=== PATIENT | male | born 1945 | race Caucasian/White ===

== ENCOUNTER 2023-02-09 13:56 | Outpatient (OUT) | payer MEDICARE, SELFPAY ==
[2023-02-09 14:19] LABS: Basophils Percent Auto 0.4 % (0.2-2.0); Eosinophils Absolute Auto 0.2 10^3/uL (0.0-0.7); Eosinophils Percent Auto 1.9 % (0.9-7.0); Hematocrit 39.6 % (42.0-54.0); Hemoglobin 13.5 g/dL (14.0-18.0); Immature Granulocytes Abs Auto 0.03 10^3/uL (0.00-0.03); Immature Granulocytes Pct Auto 0.3 % (0.0-0.5); Lymphocytes Absolute Auto 1.8 10^3/uL (1.2-3.8); Lymphocytes Percent Auto 20.1 % (20.5-60.0); Mean Corpuscular HGB Conc 34.1 g/dL (29.9-35.2); Mean Platelet Volume 8.6 fL (9.5-13.5); Monocytes Absolute Auto 0.7 10^3/uL (0.3-0.8); Monocytes Percent Auto 7.7 % (1.7-12.0); Neutrophils Absolute Auto 6.4 10^3/uL (1.4-6.5); Neutrophils Percent Auto 69.6 % (43.0-75.0); Platelet Count 296 10^3/uL (150-450); Red Blood Count 4.66 10^6/uL (4.70-6.10); Red Cell Distribution Width 13.6 % (11.0-15.0); White Blood Count 9.1 10^3/uL (4.0-11.0)
[2023-02-09 14:48] LABS: Alanine Aminotransferase 20 U/L (16-63); Albumin Level 3.4 g/dL (3.4-5.0); Alkaline Phosphatase 97 U/L (46-116); Anion Gap 11.1; Aspartate Amino Transferase 14 U/L (15-37); BUN Creatinine Ratio 17.4; Bilirubin Total 0.3 mg/dL (0.2-1.0); Calcium 8.7 mg/dL (8.5-10.1); Carbon Dioxide 28.8 mmol/L (21.0-32.0); Chloride 98 mmol/L (98-107); Estimated GFR (African America >60 (>=60); Estimated GFR (Non-African Ame >60 (>=60); Globulin 3.4 g/dL; Glucose 121 mg/dL (74-106); Potassium 3.9 mmol/L (3.5-5.1); Sodium 134 mmol/L (136-145); Total Protein 6.8 g/dL (6.4-8.2)
[2023-02-09 14:57] LABS: Thyroid Stimulating Hormone 0.721 uIU/mL (0.358-3.740)
== END 2023-02-09 13:57 ==
LOC: LAB 13:58
PROVIDERS: PCP Internal Medicine; Visit Provider Internal Medicine
DX: I10 Essential (primary) hypertension (principal); K59.09 Other constipation
CPT/HCPCS: 36415; 80053; 84443; 85025

== ENCOUNTER 2023-08-11 08:37 | Outpatient (OUT) | payer MEDICARE, SELFPAY ==
--- NOTE | 2023-08-11 09:00 | XR_ITS ---
The [address] [address] Patient Name: JENNIFER MCKINNEY MRN: [id number] date: 1945 Sex: M Assigned Patient Location: LAB Current Patient Location: LAB Accession/Order Number: [id number] Exam Date: 08/11/2023 09:05 Report Date: 08/11/2023 13:31 At the request of: SHAIKH SARAN Procedure: XR shoulder RT min 2V PROCEDURE: XR shoulder RT min 2V DATE: 08/11/2023 8:05 AM [employer] COMPARISONS: None CLINICAL INDICATION: acute pain of rt shoulder M25.511 FINDINGS: There is no evidence of fractures or other acute osseous abnormalities. There is bone demineralization consistent with the patient's age. There is evidence of mild glenohumeral degenerative change. There is evidence of mild to moderate acromioclavicular degenerative change. The visualized soft tissue show no abnormalities in these projections. XR/XR shoulder RT min 2V IMPRESSION: Right shoulder radiographs show no evidence of acute abnormalities. Findings as discussed above. Electronically authenticated by: ANTELMO ESTEVES Date: 08/11/2023 13:31
[2023-08-11 09:25] LABS: Basophils Absolute Auto 0.1 10^3/uL (0.0-0.1); Basophils Percent Auto 0.5 % (0.2-2.0); Eosinophils Absolute Auto 0.2 10^3/uL (0.0-0.7); Eosinophils Percent Auto 2.1 % (0.9-7.0); Hematocrit 42.5 % (42.0-54.0); Hemoglobin 13.8 g/dL (14.0-18.0); Immature Granulocytes Abs Auto 0.05 10^3/uL (0.00-0.03); Immature Granulocytes Pct Auto 0.5 % (0.0-0.5); Lymphocytes Absolute Auto 1.9 10^3/uL (1.2-3.8); Lymphocytes Percent Auto 19.2 % (20.5-60.0); Mean Corpuscular HGB Conc 32.5 g/dL (29.9-35.2); Mean Corpuscular Hemoglobin 28.4 pg (25.9-34.0); Mean Corpuscular Volume 87.4 fL (80.0-94.0); Mean Platelet Volume 8.7 fL (9.5-13.5); Monocytes Absolute Auto 0.8 10^3/uL (0.3-0.8); Monocytes Percent Auto 8.5 % (1.7-12.0); Neutrophils Absolute Auto 6.7 10^3/uL (1.4-6.5); Neutrophils Percent Auto 69.2 % (43.0-75.0); Platelet Count 318 10^3/uL (150-450); Red Blood Count 4.86 10^6/uL (4.70-6.10); Red Cell Distribution Width 13.9 % (11.0-15.0); White Blood Count 9.7 10^3/uL (4.0-11.0)
[2023-08-11 10:31] LABS: Alanine Aminotransferase 24 U/L (16-63); Albumin Level 3.5 g/dL (3.4-5.0); Alkaline Phosphatase 92 U/L (46-116); Anion Gap 8.5; Aspartate Amino Transferase 14 U/L (15-37); BUN Creatinine Ratio 16.7; Bilirubin Total 0.3 mg/dL (0.2-1.0); Calcium 9.5 mg/dL (8.5-10.1); Chloride 94 mmol/L (98-107); Estimated GFR (African America >60 (>=60); Estimated GFR (Non-African Ame >60 (>=60); Globulin 3.6 g/dL; Glucose 90 mg/dL (74-106); Potassium 3.5 mmol/L (3.5-5.1); Sodium 132 mmol/L (136-145); Total Protein 7.1 g/dL (6.4-8.2)
[2023-08-12 04:07] LABS: PSA, Free 0.06 ng/mL; Prostate Specific Ag 0.3 ng/mL (0.0-4.0)
== END 2023-08-11 08:38 | disposition home or self-care (01) ==
LOC: LAB 08:39
PROVIDERS: PCP Internal Medicine; Visit Provider Internal Medicine
DX: I11.0 Hypertensive heart disease with heart failure (principal); I50.30 Unspecified diastolic (congestive) heart failure; I48.0 Paroxysmal atrial fibrillation; N40.1 Benign prostatic hyperplasia with lower urinary tract symptoms; N13.8 Other obstructive and reflux uropathy; M25.511 Pain in right shoulder
CPT/HCPCS: 36415; 73030; 80053; 84153; 84154; 85025

== ENCOUNTER 2024-02-22 08:25 | Outpatient (OUT) | payer MEDICARE, SELFPAY ==
--- OUTSIDE RECORDS SUMMARY | 2024-02-22 08:29 | XMS_ITS ---
Patient Summarization (C-CDA 2.1 CCD) Created on: February 22, 2024 HANKJENNIFER : 1945 Sex: Male Author Organization Sample organization Care Team Providers Care Driller'S Offsider Name Role Phone MERY, MADHU H. Unavailable Unavailable COLEEN WORRELL Unavailable Unavailabl e MERY, MADHU H. Unavailable Unavailable MERY, MADHU H. Unavailable Unavailable COLEEN WORRELL Unavailable Unavaillena e SHAIKH Clint NOONAN Admitting Unavailable SHAIKH Clint NOONAN Attending Unavailable SHAIKH Clint NOONAN Primary Care Unavailable SHAIKH Clint NOONAN Consulting Unavailable Shaikh Noonan MD Primary Care Provider JOBST ANTI COAG, AKA JOBST MTM MED THERAPY MGMT Referring Unavailable [facility] Primary Care Unavailable JOBST ANTI COAG, AKA JOBST MTM MED THERAPY MGMT Referring Unavailable [facility] Primary Care Unavailable JOBST ANTI COAG, AKA JOBST MTM MED THERAPY MGMT Referring Unavailable [facility] Primary Care Unavailable JOBST ANTI COAG, AKA JOBST MTM MED THERAPY MGMT Referring Unavailable [facility] Primary Care Unavailable JOBST ANTI COAG, AKA JOBST MTM MED THERAPY MGMT Referring Unavailable SARAN PINEDO Primary Care Unavailable SHAIKH NOONAN Attending Unavailable SHAIKH NOONAN Attending Unavailable Encounters Encounter Date Encounter Type Care Provider Facility Start: 02-09-2024 End: 02-09-2024 ambulatory SHAIKH SARAN Not Available Start: 02-02-2024 End: 02-02-2024 ambulatory AKA JOBST MTM MED THERAPY MGMT JOBST ANTI COAG [facility] Start: 12-08-2023 End: 12-08-2023 ambulatory AKA JOBST MTM MED THERAPY MGMT JOBST ANTI COAG [facility] Start: 11-10-2023 End: 11-10-2023 Follow-up encounter Eric Regan MD Work Phone: [facility] Medication Therapy Management Comment on above: Paroxysmal A-fib (CM S-HCC) (Primary Dx); tank terminal gauger (current) use of anticoagulants Start: 11-10-2023 End: 11-10-2023 ambulatory AKA JOBST MTM MED THERAPY MGMT [facility] Start: 09-15-2023 End: 09-15-2023 Follow-up encounter Eric Regan MD Work Phone: [facility] Medication Therapy Management Comment on above: Paroxysmal A-fib (CM S-HCC) (Primary Dx); half-way (current) use of anticoagulants Start: 09-15-2023 End: 09-15-2023 ambulatory AKA JOBST MTM MED THERAPY MGMT [facility] Start: 09-15-2023 End: 09-23-2023 ambulatory AKA JOBST MTM MED THERAPY MGMT JOBST ANTI [facility] Start: 08-10-2023 End: 08-10-2023 ambulatory PINEDO NATALIEWAD Not Available Start: 02-02-2022 End: 02-03-2022 ambulatory PINEDO Clint FAWWAD Facility: Start: 08-15-2018 End: 08-16-2018 Evaluation and management of inpatient [facility] Start: 08-10-2018 End: 08-15-2018 Patient encounter procedure [facility] Start: 01-20-2017 End: 03-06-2020 Patient encounter status [facility] Medical Equipment Procedure Code Equipment Code Equipment Origin al Text Equipment Identifier Dates Lead Capsure Fix [id number] [id number] - [id number] - [id number] Start: 02-22-2017 Cardiac pacemaker, device (physical object) [id number][facility] - [id number] - [id number] FDA Start: 02-22-2017 Medications Current Medications Medication Drug Class(es) Dates Sig (Normalized) Sig (Original) finasteride 5 mg oral tablet (2 sources) 5-alpha Reductase Inhibitor take 1 tablet by mouth in the morning finasteride (PROSCAR) 5 mg tablet Take 1 tablet (5 mg total) by mouth in the morning. 0 Active hydroCHLOROthiazide 25 mg oral tablet (2 sources) Thiazide Diuretic Start: 01-24-20 20 take 1 tablet by mouth once daily hydroCHLOROthiazide (HYDRODIURIL) 25 mg tablet Take 1 tablet (25 mg total) by mouth daily. 0 01/24/2020 Active lisinopril 20 mg oral tablet (2 sources) Angiotensin Converting Enzyme Inhibitor take 1 tablet by mouth in the morning lisinopril (PRINIVIL,ZESTRIL) 20 mg tablet Take 1 tablet (20 mg total) by mouth in the morning. 0 Active metoprolol tartrate 25 mg oral tablet (2 sources) beta-Adrenergic Ronit Start: 03-03-20 23 take 1 tablet by mouth in the morning, then take 1 tablet by mouth at bedtime metoprolol tartrate (LOPRESSOR) 25 mg tablet Take 1 tablet (25 mg total) by mouth in the morning and 1 tablet (25 mg total) before bedtime. 180 tablet 3 03/03/2023 Active NON FORMULARY (2 sources) NON FORMULARY Me d Name: AREDS 2 EYE VITAMIN 2 DAILY 0 Active omeprazole 20 mg delayed release oral capsule (2 sources) Proton Pump Inhibitor take 1 capsule by mouth in the morning omeprazole (PriLOSEC) 20 mg capsule Take 1 capsule (20 mg total) by mouth in the morning. 0 Active QUEtiapine 25 mg oral tablet (2 sources) Atypical Antipsychotic Start: 02-27-20 21 take 1 tablet by mouth once daily QUEtiapine (SEROquel) 25 mg tablet Take 1 tablet (25 mg total) by mouth nightly. 0 02/26/2021 Active vit C/E/zinc ox/michelet/lut/zeax (ICAPS AREDS2 ORAL) (2 sources) take 2 tablets by mouth twice daily vit C/E/zinc ox/michelet/lut/zeax (ICAPS AREDS2 ORAL) Take 2 tablets by mouth 2 (two) times a day. 0 Active warfarin sodium 5 mg oral tablet (2 sources) Vitamin K Antagonist Start: 02-04-20 23 take 1 tablet by mouth in the evening warfarin (COUMADIN) 5 mg tablet Indications: Paroxysmal A-fib (CMS-HCC) , tank terminal gauger (current) use of anticoagulants Take 1 tablet (5 mg total) by mouth in the evening. [facility].. 90 tablet 3 02/03/2023 Active Payers Date Payer Category Payer Medicare AETNA MEDICARE A ETNA MEDICARE PLAN (HMO) [id number] 2022-Present [phone] [address] [place] [address] [id number] 2022 Medicare [id number] 1961 Medicare [id number] 1961 Unknown [id number] 1945 Unknown [id number] 1945 Unknown [id number] 1945 Unknown [id number] 1945 Unknown [id number] 1945 Unknown [id number] 1945 Unknown [id number] 1945 Unknown [id number] 1945 Unknown [id number] 1945 Unknown [id number] 1945 Unknown [id number] Plan of Treatment Date Care Activity Detail Author Start: 03-25-2024 Adult BMI Screening Adult BMI Screening [facility] Start: 03-03-2024 Tobacco Screening Tobacco Screening [facility] Start: 12-08-2023 End: 12-08-2023 Follow-up encounter 12/08/2023 3:15 PM EDT Follow Up Anticoagulation [facility] Medication Therapy Management [address] [facility] [place] [address] Eric Regan MD [facility] [place] [address] [facility] Medication Therapy Management Start: 11-10-2023 End: 11-10-2023 Follow-up encounter 11/10/2023 3:00 PM EDT Follow Up Anticoagulation [facility] Medication Therapy Management [address] [place] [place] [address] Eric Regan MD [facility] [place] [address] [facility] Medication Therapy Management Start: 04-23-2023 COVID-19 Vaccine ( season) COVID-19 Vaccine ( season) [facility] Start: 2008 Fall Risk Screening Fall Risk Screening [facility] Start: 1993 Administration of varicella zoster vaccine Zoster (Shingles) Vaccine (1 of 2) [facility] Start: 1962 DTaP,Tdap and Td Vaccines (1 - Tdap) DTaP,Tdap and Td Vaccines (1 - Tdap) [facility] Start: 1961 Adult BMI Follow Up Plan Adult BMI Follow Up Plan [facility] Start: 1955 Depression Screening Depression Screening [facility] Start: 1945 Medicare Annual Wellness Visit Medicare Annual Wellness Visit [facility] Problems Active Problems Problem Classification Problem Date Documented Date Episodic/Chronic Cardiac dysrhythmias (8 sources) Unspecified atrial fibrillation; Translations: [Paroxysmal atrial fibrillation] Onset: 04-28-2017 Resolved: 06-29-2018 09-15-2023 Chronic Conduction disorders (4 sources) Complete atrioventricular block; Translations: [Atrioventricular block, complete] Onset: 01-20-2017 03-06-2020 Chronic Congestive heart failure; nonhypertensive (2 sources) Heart failure; Translations: [Unspecified diastolic (congestive) heart failure] Onset: 08-09-2019 03-06-2020 Chronic Essential hypertension (4 sources) Essential (primary) hypertension; Translations: [ESSENTIAL PRIMARY HYPERTENSION] Onset: 02-02-2022 Chronic Hypertension with complications and secondary hypertension (2 sources) Hypertensive heart disease; Translations: [Hypertensive heart disease without heart failure] Onset: 02-15-2017 03-06-2020 Chronic Other aftercare (6 sources) Long-term current use of anticoagulant; Translations: [tank terminal gauger (current) use of anticoagulants] Onset: 06-27-2018 Resolved: 06-29-2018 09-15-2023 Episodic Other connective tissue disease (1 source) Other symptoms and signs involving the musculoskeletal system; Translations: [Other symptoms and signs involving the musculoskeletal system] Onset: 08-10-2018 Episodic Other nervous system disorders (2 sources) Disease of spinal cord, unspecified; Translations: [Disease of spinal cord, unspecified] Onset: 08-15-2018 Chronic Other nervous system disorders (1 source) Unspecified cord compression; Translations: [Unspecified cord compression] Onset: 08-10-2018 Chronic Other screening for suspected conditions (not mental disorders or infectious disease) (1 source) Encounter for screening for malignant neoplasm of prostate; Translations: [ENC SCREEN MALIG NEOPLASM PROSTATE] Onset: 02-05-2022 Episodic Spondylosis; intervertebral disc disorders; other back problems (1 source) Other spondylosis with myelopathy, cervical region; Translations: [Other spondylosis with myelopathy, cervical region] Onset: 08-10-2018 Chronic Spondylosis; intervertebral disc disorders; other back problems (2 sources) Radiculopathy, cervical region; Translations: [Spinal stenosis, cervical region] Onset: 08-10-2018 Episodic Past or Other Problems Problem Classification Problem Date Documented Da te Episodic/Chronic Other aftercare (1 source) tank terminal gauger (current) use of anticoagulants; Translations: [half-way (current) use of anticoagulants] Onset: 03-04-2022 Episodic Procedures Date Procedure Procedure Detail Performing Clinician Start: 11-10-2023 Prothrombin time Jobst Service Work Phone: Start: 09-15-2023 Prothrombin time Jobst Service Work Phone: Start: 02-02-2022 PSA screening SHAIKH JEANNETTE BRITO Comment on above: Performed By: #### P [facility] #### [facility] [address] [place] [address] Dr. Shirin Quintero Start: 08-16-2018 PULSE OXIMETRY, CONTINUOUS MADHU MERY Start: 08-16-2018 DISCHARGE PATIENT MADHU YO O Start: 08-16-2018 DIET GENERAL MADHU MERY Start: 08-16-2018 PATIENT STATUS (DIRECT) MADHU MERY Start: 08-16-2018 INITIATE OXYGEN THER APY PROTOCOL MADHU MERY Start: 08-16-2018 PULSE OXIMETRY, CONTINUOUS MADHU MERY Start: 08-16-2018 PULSE OXIMETRY, CONTINUOUS MADHU MERY Start: 08-16-2018 DAILY WEIGHTS MADHU MERY Start: 08-16-2018 INTAKE AND OUTPUT MADHU YO O Start: 08-16-2018 PULSE OXIMETRY, CONTINUOUS MADHU MERY Start: 08-15-2018 PULSE OXIMETRY, CONTINUOUS MADHU MERY Start: 08-15-2018 PULSE OXIMETRY, CONTINUOUS MADHU MERY Start: 08-15-2018 ACTIVITY TOLERATED B O MERY Start: 08-15-2018 ADVANCE DIET TOLE RATED (NURSING COMMUNICATION) MADHU MERY Start: 08-15-2018 AMBULATE PATIENT MADHU MERY Start: 08-15-2018 ELEVATE HOB MADHU MERY Start: 08-15-2018 FULL CODE MADHU MERY Start: 08-15-2018 INITIATE OXYGEN THER APY PROTOCOL MADHU MERY Start: 08-15-2018 INTAKE AND OUTPUT MADHU YO O Start: 08-15-2018 NEURO/VASCULAR CHECKS B O MERY Start: 08-15-2018 NOTIFY PHYSICIAN (SPECIFY) MADHU MERY Start: 08-15-2018 NURSING COMMUNICATION B O MERY Start: 08-15-2018 OT EVAL AND TREAT MADHU YO O Start: 08-15-2018 PLACE INTERMITTENT PNEUMATIC COMPRESSION DEVICE MADHU MERY Start: 08-15-2018 PT EVAL AND TREAT MADHU YO O Start: 08-15-2018 PULSE OXIMETRY, CONTINUOUS MADHU MERY Start: 08-15-2018 TELEMETRY MONITORING MADHU MERY Start: 08-15-2018 TOBACCO CESSATION EDUCATION MADHU MERY Start: 08-15-2018 VITAL SIGNS MADHU MERY Start: 08-15-2018 PATIENT STATUS (FROM ED OR OR/PROCEDURAL) MADHU MERY Start: 08-15-2018 TRANSFER PATIENT MADHU MERY Start: 08-10-2018 EKG 12-LEAD MADHU MERY Start: 08-10-2018 URINE RT REFLEX TO CULTURE MADHU MERY Start: 08-10-2018 Blood count complete automated MADHU MERY Start: 08-10-2018 Prothrombin time MADHU MERY Start: 08-10-2018 Thromboplastin time partial plasma/whole blood MADHU MERY Start: 08-10-2018 Basic metabolic pane l calcium total MADHU MERY Start: 08-10-2018 TYPE AND SCREEN MADHU MERY Results Test Name Value Interpretation Reference Range Facil ity POCT Protime / INRon 11-09-2 024 INR Coag (PPP) [Relative time] 3.5 {INR} Abnormal 0.8 - 1.2 [facility] Interpretation and review of laboratory results Abnormal [facility] POCT Protime / INRon 09-15-2 024 INR Coag (PPP) [Relative time] 3.4 {INR} Abnormal 0.8 - 1.2 [facility] Interpretation and review of laboratory results Abnormal [facility] CBC AUTO DIFFon 02-02-2022 BASO # 0.0 103/ul Normal 0.0-0.1 [facility] Comment on above: Performed By: #### C BC #### [facility] [address] [place] [address] Dr. Shirin Quintero Basophils/100 WBC (Bld) 0.5 % Normal 0.2-2.0 [facility] Comment on above: Performed By: #### C BC #### [facility] [address] [place] [address] Dr. Shirin Quintero EO # 0.3 103/ul Normal 0.0-0.7 [facility] Comment on above: Performed By: #### C BC #### [facility] [address] [place] [address] Dr. Shirin Quintero Eosinophils/100 WBC (Bld) 3.5 % Normal 0.9-7.0 [facility] Comment on above: Performed By: #### C BC #### [facility] [address] [place] [address] Dr. Shirin Quintero Erythrocyte distribution width (RBC) [Ratio] 13.9 % Normal 11.0-15.0 [facility] Comment on above: Performed By: #### C BC #### [facility] [address] [place] [address] Dr. Shirin Quintero Hematocrit (Bld) [Volume fraction] 40.3 % Critically low 42.0-54.0 [facility] Comment on above: Performed By: #### C BC #### [facility] [address] [place] [address] Dr. Shirin Quintero Hemoglobin (Bld) [Mass/Vol] 13.1 g/dL Critically low 14.0-18.0 [facility] Comment on above: Performed By: #### C BC #### [facility] [address] [place] [address] Dr. Shirin Quintero IG # 0.02 10e3/ul Normal 0.00-0.03 [facility] Comment on above: Performed By: #### C BC #### [facility] [address] [place] [address] Dr. Shirin Quintero IG % 0.3 % Normal 0.0-0.5 [facility] Comment on above: Performed By: #### C BC #### [facility] [address] [place] [address] Dr. Shirin Quintero LYMPH # 1.4 103/ul Normal 1.2-3.8 [facility] Comment on above: Performed By: #### C BC #### [facility] [address] [place] [address] Dr. Shirin Quintero Lymphocytes/100 WBC (Bld) 18.6 % Critically low 20.5-60.0 [facility] Comment on above: Performed By: #### C BC #### [facility] [address] [place] [address] Dr. Shirin Quintero MANUAL DIFF REQ NO Normal [facility] Comment on above: Performed By: #### C BC #### [facility] [address] [place] [address] Dr. Shirin Quintero MCH (RBC) [Entitic mass] 28.8 pg Normal 25.9-34.0 [facility] Comment on above: Performed By: #### C BC #### [facility] [address] [place] [address] Dr. Shirin Quintero MCHC (RBC) [Mass/Vol] 32.5 g/dL Normal 29.9-35.2 [facility] Comment on above: Performed By: #### C BC #### [facility] [address] [place] [address] Dr. Shirin Quintero MCV (RBC) [Entitic vol] 88.6 fL Normal 80.0-94.0 [facility] Comment on above: Performed By: #### C BC #### [facility] [address] [place] [address] Dr. Shirin Quintero MONO # 0.7 103/ul Normal 0.3-0.8 [facility] Comment on above: Performed By: #### C BC #### [facility] [address] [place] [address] Dr. Shirin Quintero Monocytes/100 WBC (Bld) 8.5 % Normal 1.7-12.0 [facility] Comment on above: Performed By: #### C BC #### [facility] [address] [place] [address] Dr. Shirin Quintero NEUT # 5.3 103/ul Normal 1.4-6.5 [facility] Comment on above: Performed By: #### C BC #### [facility] [address] [place] [address] Dr. Shirin Quintero Neutrophils/100 WBC (Bld) 68.6 % Normal 43.0-75.0 [facility] Comment on above: Performed By: #### C BC #### [facility] [address] [place] [address] Dr. Shirin Quintero Platelet mean volume (Bld) [Entitic vol] 9.6 fL Normal 9.5-13.5 [facility] Comment on above: Performed By: #### C BC #### [facility] [address] [place] [address] Dr. Shirin Quintero PLT 296 103/ul Normal 150-450 [facility] Comment on above: Performed By: #### C BC #### [facility] [address] [place] [address] Dr. Shirin Quintero RBC 4.55 106/ul Critically low 4.70-6.10 [facility] Comment on above: Performed By: #### C BC #### [facility] [address] [place] [address] Dr. Shirin Quintero WBC 7.8 103/ul Normal 4.0-11.0 [facility] Comment on above: Performed By: #### C BC #### [facility] [address] [place] [address] Dr. Shirin Quintero PROF 14(COMP METB)on 022 Albumin [Mass/Vol] 3.6 g/dL Normal 3.4-5.0 [facility] Comment on above: Performed By: #### C MP #### [facility] [address] [place] [address] Dr. Shirin Quintero Albumin/Globulin [Mass ratio] 1.2 {ratio} Normal [facility] Comment on above: Performed By: #### C MP #### [facility] [address] [place] [address] Dr. Shirin Quintero ALP [Catalytic activity/Vol] 94 U/L Normal 46-116 [facility] Comment on above: Performed By: #### C MP #### [facility] [address] [place] [address] Dr. Shirin Quintero ALT [Catalytic activity/Vol] 23 U/L Normal 16-63 [facility] Comment on above: Performed By: #### C MP #### [facility] [address] [place] [address] Dr. Shirin Quintero Anion gap [Moles/Vol] 11.0 mmol/L Normal Th [facility] Comment on above: Performed By: #### C MP #### [facility] [address] [place] [address] Dr. Shirin Quintero AST [Catalytic activity/Vol] 16 U/L Normal 15-37 [facility] Comment on above: Performed By: #### C MP #### [facility] [address] [address] [address] Shirin Quintero Bilirubin [Mass/Vol] 0.5 mg/dL Normal 0.2-1.0 [facility] Comment on above: Performed By: #### C MP #### [facility] [address] [place] [address] Dr. Shirin Quintero Calcium [Mass/Vol] 8.6 mg/dL Normal 8.5-10.1 [facility] Comment on above: Performed By: #### C MP #### [facility] [address] [place] [address] Dr. Shirin Quintero Chloride [Moles/Vol] 99 mmol/L Normal 98-107 [facility] Comment on above: Performed By: #### C MP #### [facility] [address] [place] [address] Dr. Shirin Quintero CO2 [Moles/Vol] 28.6 mmol/L Normal 21.0-32.0 [facility] Comment on above: Performed By: #### C MP #### [facility] [address] [place] [address] Dr. Shirin Quintero Creatinine [Mass/Vol] 0.80 mg/dL Normal 0.70-1.30 [facility] Comment on above: Performed By: #### C MP #### [facility] [address] [place] [address] Dr. Shirin Quintero EGFR-AF KYRGYZ >60 Normal >=60 [facility] Comment on above: Performed By: #### C MP #### [facility] [address] [place] [address] Dr. Shirin Quintero EGFR-NON AF KYRGYZ >60 Normal >=60 [facility] Comment on above: Performed By: #### C MP #### [facility] [address] [address] [address] Shirin Quintero Globulin (S) [Mass/Vol] 3.1 g/dL Normal [facility] Comment on above: Performed By: #### C MP #### [facility] [address] [address] [address] Shirin Quintero Glucose [Mass/Vol] 97 mg/dL Normal 74-106 [facility] Comment on above: Performed By: #### C MP #### [facility] [address] [address] [address] Shirin Quintero Potassium [Moles/Vol] 3.6 mmol/L Normal 3.5-5.1 [facility] Comment on above: Performed By: #### C MP #### [facility] [address] [address] [address] Shirin Quintero Protein [Mass/Vol] 6.7 g/dL Normal 6.4-8.2 [facility] Comment on above: Performed By: #### C MP #### [facility] [address] [address] [address] Shirin Quintero Sodium [Moles/Vol] 135 mmol/L Critically low 136-145 [facility] Comment on above: Performed By: #### C MP #### [facility] [address] [address] [address] Shirin Quintero Urea nitrogen [Mass/Vol] 15.0 mg/dL Normal 7.0-18.0 [facility] Comment on above: Performed By: #### C MP #### [facility] [address] [address] [address] Shirin Quintero Urea nitrogen/Creatinine [Mass ratio] 18.8 mg/mg Normal [facility] Comment on above: Performed By: #### C MP #### [facility] [address] [address] [address] Shirin Quintero Basic Metabolic Panelon 12- Anion gap 3 molar conc 12 mmol/L Normal 7-13 [facility] Calcium mass conc 9.2 mg/dL Normal 8.6-10.2 [facility] Chloride molar conc 91 mmol/L Low 98-107 [facility] CO2 molar conc 27 mmol/L Normal 22-29 [facility] Creatinine mass conc 0.57 mg/dL Low 0.70-1.20 [facility] GFR/1.73 sq M predicted among blacks MDRD vol rate/area (S/P/Bld) mL/min/{1.73_m2} Normal >60 [facility] Comment on above: Result Comment: >60 mL/min/1.73m2 EGFR, calc. for ages 18 and older using theMDRD formula (not corrected for weight), is valid for stablerenal function. GFR/1.73 sq M.predicted MDRD vol rate/area mL/min/{1.73_m2} Normal >60 [facility] Comment on above: Result Comment: >60 mL/min/1.73m2 EGFR, calc. for ages 18 and older using theMDRD formula (not corrected for weight), is valid for stablerenal function. Glucose mass conc 119 mg/dL Critically high 74-109 [facility] Potassium molar conc 3.6 mmol/L Normal 3.5-5.1 [facility] Sodium molar conc 130 mmol/L Low 132-144 [facility] Urea nitrogen mass conc 13 mg/dL Normal 8-23 [facility] CBC With Platelet No Differe ntialon 08-10-2018 Erythrocyte distribution width Auto Ratio (RBC) 13.4 % Normal 11.5-14.5 [facility] Hematocrit Auto Volume Fraction (Bld) 41.4 % Low 42.0-52.0 [facility] Hemoglobin mass conc (Bld) 14.5 g/dL Normal 14.0-18.0 [facility] MCH Auto Entitic mass (RBC) 31.2 pg Normal 27.0-31.3 [facility] MCHC Auto mass conc (RBC) 35.1 % Normal 33.0-37.0 [facility] MCV Auto Entitic volume (RBC) 89.0 fL Normal 80.0-100.0 [facility] Platelets Auto #/vol (Bld) 323 10*3/uL Normal 130-400 [facility] RBC Auto #/vol (Bld) 4.65 10*6/uL Low 4.70-6.10 [facility] WBC Auto #/vol (Bld) 10.9 10*3/uL Critically high 4.8-10.8 [facility] Partial Thromboplastin Timeo n 08-10-2018 aPTT Coag time (Bld) 32.7 s Normal 21.6-35.4 [facility] Comment on above: Result Comment: Effe ctive 07/26/18:Please note reference ranges havechanged for PT testing. Prothrombin Timeon 8 INR Coag RelTime (PPP) 1.1 {INR} Normal [facility] Comment on above: Result Comment: Prosper mmended INR therapeutic ranges for oral anticoagulanttherapyProphylaxis/treatment of: INR Venous Thrombosis, Pulmonary Embolism 2.0-3Prevention of Systemic Embolism from: Atrial Fibrillation 2.0-3.0 Myocardial Infarction 2.0-3.0 Mechanical Prosthetics Heart Valves 2.5-3.5 Recurrent Systemic Embolism 2.5-3.5Guidelines for patients with coagulopathy, e.g. liver disease:Use the Protime resulted in seconds. Mild 12.9-17.0 sec Moderate 17.1-22.6 sec Severe G.T. 22.6 sec Prothrombin time (PT) Coag time (PPP) 10.9 s Normal 9.0-11.5 [facility] Comment on above: Result Comment: Effe ctive 07/26/18:Please note reference ranges havechanged for PT testing. Type and Screen Capture 3 sc rn cellon 08-10-2018 Bilirubin mass conc PATIENT: HANK Cobb LOC: CELENAFRANCINE# : [id number] : 1945 SEX: MORDERED BY: PATTI LEDESMA ORDERED : 08/10/2018 07:39 COLLECTED: 08/10/2018 08:29ORDER : [id number] RECEIVED : 08/10/2018 08:29 Confirmation type needs to be drawn. TEST NAME RESULT UNITS RANGES ABN FL STABORH Capture A POS FAntibody 3 Cell Scrn Captu NEG F ------ Normal [facility] Urinalysis, reflex to cultur ayde 08-10-2018 Bilirubin Ql (U) Negative Normal Negative [facility] Clarity Nom (U) Clear Normal Clear [facility] Color Nom (U) Yellow Normal Straw/Teller [facility] Glucose Ql (U) Negative Normal Negative [facility] Hemoglobin Test strip Ql (U) Negative Normal Negative [facility] Ketones Ql (U) Negative Normal Negative [facility] Leukocyte esterase Test strip Ql (U) Negative Normal Negative [facility] Nitrite Test strip Ql (U) Negative Normal Negative [facility] pH Test strip (U) 7.0 [pH] Normal 5.0-9.0 [facility] Protein Test strip Ql (U) Negative Normal Negative [facility] Specific gravity Relative Density (U) 1.020 Normal 1.005-1.03 [facility] Urine Reflexed to Culture Not Indicated Normal [facility] Urobilinogen Test strip Qn (U) 1.0 {Abdoulaye'U}/dL Normal < 2.0 [facility] Social History Date Type Detail Facility Start: 03-03-2023 Tobacco smoking stat us GAIS Ex-smoker [facility] Start: 03-03-2023 Tobacco use and exposure Smokeless tobacco non-user [facility] Start: 03-03-2023 Alcohol intake Current drinke r of alcohol (finding) [facility] Start: 10-02-2020 End: 03-03-2023 History of Social function [facility] Start: 10-02-2020 End: 03-03-2023 Tobacco use panel [facility] Start: 03-04-2022 Alcohol Comment seldom 2 OR VO DKA A WEEK [facility] Start: 1945 Sex Assigned At Not on file P [facility] End: 08-25-2016 History of tobacco use Current smoker [facility] End: 08-25-2016 History of tobacco use Cigarette Smoker [facility] Childcare Unknown [facility] History of Present illness Narrative 11-10-2023 Ana Ramirez RP - 11/10/2023 3:00 PM EDT Note Date & Type Note Facility 11-10-2023 History of Present illness Narrative 15 minute [id number] follow-up anticoagulation appointment. INR performed in office per protocol. INR 3.5 (goal range: 2.0-3.0). Patient reports: Taking warfarin dosing as documented. Missed or extra doses of warfarin: No Changes to medications: No Changes to lifestyle (diet / alcohol / smoking / activity): No Recent emergency department visit / hospitalization / health changes / new contraindication to current anticoagulant: No Signs/symptoms of bruising/bleeding or clotting or any intolerable adverse events: No Upcoming procedures: No Anticoagulant prescription needed: No Seen referring provider in the last year Duration of therapy reviewed Assessment: INR remains elevated and has been elevated since June. Discussed with patient we need to lower his dosing given this trend. Will reduce weekly by 7%. Recommended 2-3 week follow up given dose change. Patient refuses, but is agreeable to 4 week. Plan: Patient instructed to decrease to warfarin 2.5 mg Karishma and 5 mg AOD. Check INR in 4 week(s) per patient request. Patient is usually an 8 week follow up. Patient verbalizes understanding of anticoagulant dosing instructions and information discussed. Dosing regimen, counseling, and follow-up appointment were provided to the patient. Patient reminded to call with questions or any medication changes. Patient instructed to seek medical attention if any major bleeding/bleeding that persists or worsens. Ana Ramirez RPH 11/10/23 1458 documented in this encounter [facility] History of Present illness Narrative 09-15-2023 Ana Ramirez RP - 09/15/2023 3:15 PM EST Note Date & Type Note Facility 09-15-2023 History of Present illness Narrative 15 minute [id number] follow-up anticoagulation appointment. INR performed in office per protocol. INR 3.4 (goal range: 2.0-3.0). Patient reports: Taking warfarin dosing as documented. Missed or extra doses of warfarin: No Changes to medications: No Changes to lifestyle (diet / alcohol / smoking / activity): YES Patient reports increased ETOH this week Decreased activity with weather; plans to resume Recent emergency department visit / hospitalization / health changes / new contraindication to current anticoagulant: No Signs/symptoms of bruising/bleeding or clotting or any intolerable adverse events: No Upcoming procedures: No Anticoagulant prescription needed: No Seen referring provider in the last year Duration of therapy reviewed Assessment: INR remains elevated. Patient endorses increased ETOH and decreased activity. Plans to resume usual level of both. We will reduce x1, then resume previous dose. If remains elevated at next visit, will reduce weekly dose. Plan: Patient instructed to decrease to warfarin 2.5 mg 09/15, then resume 5 mg daily. Check INR in 8 week(s) per patient request Patient verbalizes understanding of anticoagulant dosing instructions and information discussed. Dosing regimen, counseling, and follow-up appointment were provided to the patient. Patient reminded to call with questions or any medication changes. Patient instructed to seek medical attention if any major bleeding/bleeding that persists or worsens. Ana Ramirez 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 Long-term (current) use of anticoagulants [facility] Instructions Note Date & Type Note Facility Instructions Not on filedocumented in this en counter [facility] Summary Purpose Family History No Family History Records FoundNo Family History Records FoundNo Family History Records FoundNo Family History Records Found Advance Directives No Advanced Directives Records FoundNo Advanced Directives Records FoundNo Advanced Directives Records FoundNo Advanced Directives Records Found Additional Source Comments (unrecognized sect ion and content) No Status Records FoundNo Status Records FoundNo Status Records FoundNo Status Records Found INFORMATION SOURCE (unrecogn ized section and content) DATE CREATED AUTHOR 08/17/2018 [facility] DATE CREATED AUTHOR AUTHOR'S ORGANIZ ATION 02/06/2022 [facility] DATE CREATED AUTHOR AUTHOR'S ORGANIZ ATION 02/04/2024 [facility] DATE CREATED AUTHOR AUTHOR'S ORGANIZ ATION 02/10/2024 [facility] EPIC Care Teams (unrecognized sec tion and content) [employer] Relationship Specialty Start Date End Date Shaikh Noonan MD [address] [place] [address] PCP - General Internal Medicine 03/04/22 FOR RECORDS PERTAINING TO PATIENTS WHO ARE OR HAVE BEEN ENROLLED IN A CHEMICAL DEPENDENCY/SUBSTANCEABUSE PROGRAM, SOME INFORMATION MAY BE OMITTED. This clinical summary was aggregated from multiple sources. Caution should be exercised in using it in the provision of clinical care. This summary normalizes information from multiple sources, and as a consequence, information in this document may materially change the coding, format and clinical context of patient data. In addition, data may be omitted in some cases. CLINICAL DECISIONS SHOULD BE BASED ON THE PRIMARY CLINICAL RECORDS. [employer] provides no warranty or guarantee of the accuracy or completeness of information in this document.
[2024-02-22 08:44] LABS: Basophils Percent Auto 0.4 % (0.2-2.0); Eosinophils Absolute Auto 0.2 10^3/uL (0.0-0.7); Eosinophils Percent Auto 2.3 % (0.9-7.0); Hemoglobin 12.2 g/dL (14.0-18.0); Immature Granulocytes Abs Auto 0.03 10^3/uL (0.00-0.03); Immature Granulocytes Pct Auto 0.4 % (0.0-0.5); Lymphocytes Absolute Auto 1.5 10^3/uL (1.2-3.8); Lymphocytes Percent Auto 18.1 % (20.5-60.0); Mean Corpuscular HGB Conc 32.1 g/dL (29.9-35.2); Mean Corpuscular Hemoglobin 28.4 pg (25.9-34.0); Mean Corpuscular Volume 88.4 fL (80.0-94.0); Monocytes Absolute Auto 0.6 10^3/uL (0.3-0.8); Monocytes Percent Auto 7.5 % (1.7-12.0); Neutrophils Absolute Auto 6.1 10^3/uL (1.4-6.5); Neutrophils Percent Auto 71.3 % (43.0-75.0); Platelet Count 265 10^3/uL (150-450); Red Cell Distribution Width 14.6 % (11.0-15.0); White Blood Count 8.5 10^3/uL (4.0-11.0)
[2024-02-22 09:04] LABS: Alanine Aminotransferase 20 U/L (16-63); Albumin Globulin Ratio 1.1; Albumin Level 3.3 g/dL (3.4-5.0); Alkaline Phosphatase 91 U/L (46-116); Anion Gap 13.1; Aspartate Amino Transferase 24 U/L (15-37); BUN Creatinine Ratio 12.5; Bilirubin Total 0.4 mg/dL (0.2-1.0); Calcium 8.5 mg/dL (8.5-10.1); Carbon Dioxide 26.5 mmol/L (21.0-32.0); Chloride 106 mmol/L (98-107); Estimated GFR (African America >60 (>=60); Estimated GFR (Non-African Ame >60 (>=60); Glucose 93 mg/dL (74-106); Potassium 3.6 mmol/L (3.5-5.1); Sodium 142 mmol/L (136-145); Total Protein 6.3 g/dL (6.4-8.2)
== END 2024-02-22 08:26 | disposition home or self-care (01) ==
LOC: LAB 08:26
PROVIDERS: PCP Internal Medicine; Visit Provider Internal Medicine
DX: I48.0 Paroxysmal atrial fibrillation (principal); I10 Essential (primary) hypertension; I50.30 Unspecified diastolic (congestive) heart failure
CPT/HCPCS: 36415; 80053; 85025